=== PATIENT | female | born 1990 | race Caucasian/White ===

== ENCOUNTER 2017-07-10 09:50 | Outpatient (CLI) | payer OTHER, MEDICAID, BC, SELFPAY ==
[2017-07-10 10:54] VITALS: BMI 23.5
[2017-07-10 12:17] LABS: Amphetamine Urine VISTA NEGATIVE (<1000 ng/mL); Barbiturate Urine VISTA NEGATIVE (< 200 ng/mL); Benzodiazepine Urine VISTA NEGATIVE (< 200 ng/mL); Cocaine Urine VISTA NEGATIVE (< 300 ng/mL); Ecstacy Urine VISTA NEGATIVE (< 500 ng/mL); Methadone Urine VISTA NEGATIVE (< 300 ng/mL); PCP Urine VISTA NEGATIVE (< 25 ng/mL); THC Urine VISTA NEGATIVE (< 50 ng/mL); Vista UDS pH Range 7
--- NOTE | 2017-07-10 12:44 | OB.TRI.NOTE ---
History of Present Illness Reason For Visit: RULE OUT LABOR Date of Service: 07/10/17 Gestational age: 38 History of Present Illness: Presented for contractions. [place] last evening. Denied any vaginal bleeding, leakage of fluid. Many missed visits Allergies No Known Allergies Allergy (Verified 09/28/15 23:31) NST - FHR Rate Baby A Variability:: Moderate Accelerations:: 15 x 15 Decelerations:: None NST Reactive:: Yes FHR Category:: Category I Uterine Activity:: Irregular every 7- 10 minutes, mild. Patient not uncomfortable or feeling much contractions. Impression/Plan A: False labor at 36w1d P: 1) D/C home for false labor 2) [facility] 3) Talked with child welfare social worker for transportation.
--- NOTE | 2017-07-10 12:48 | OB.TRI.HP_ITS ---
History of Present Illness Reason For Visit: RULE OUT LABOR Date of Service: 07/10/17 Gestational age: 38 History of Present Illness: Presented for contractions. [place] last evening. Denied any vaginal bleeding, leakage of fluid. Many missed visits Allergies No Known Allergies Allergy (Verified 09/28/15 23:31) NST - FHR Rate Baby A Variability:: Moderate Accelerations:: 15 x 15 Decelerations:: None NST Reactive:: Yes FHR Category:: Category I Uterine Activity:: Irregular every 7- 10 minutes, mild. Patient not uncomfortable or feeling much contractions. Impression/Plan A: False labor at 36w1d P: 1) D/C home for false labor 2) [facility] appointment [facility] 3) Talked with social services analyst for transportation.
--- NOTE | 2017-07-10 13:45 | CASEMGMT ---
Social Work Note - Labor and Delivery Consult received by nursing Consult for: resources, specifically transportation issues, missed PNC appointments resulting in limited PNC and MOB at 36 weeks gestation. Summary: Met with patient in room alone. Introduced to social work role and reason for visit. Patient smiling and seeming relaxed in bed. Patient acknowledges there have been some transportation issues to get to appointments, as well as confirms that does have [facility]. 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 Patient denies any safety concerns in her home. Patient reports this was a surprise, that there was a lot of emotion with this, but is accepting of the and to be looking forward to baby. Patient reports to be set on baby supplies for the most part, to have a safe sleep space for baby but still needs a car seat. Patient reports has let WIC lapse, but has used this service in the past. Patient reports receptivity to resources which may be helpful, as well as agreed to have clinical social work aide print off WIC applications. Interventions: Provided handout regarding transportation and babies first program through [facility] Provided General resource list for [facility], as well as verbal education on Car Seat program through [facility] Provided WIC applications for self, baby, and younger children at home. MOB denies any other needs at this time, and reports thanks for information. Updated nursing staff. No other services requested or indicated at this time, but social work does remain available should other needs or concerns arise before discharge home. -JALEN Azul, TILE PROFESSIONAL
[2017-07-10 15:06] LABS: Group B Strep DNA By PCR Negative (Negative); Internal Control PASS; Probe Check PASS; Specimen Processing Control PASS
== END 2017-07-10 13:05 | disposition home or self-care (01) ==
LOC: WPOUT 10:30 → WP 10:30
PROVIDERS: Advanced Practice Midwife; Family Provider Family Medicine; PCP Family Medicine; Visit Provider Obstetrics & Gynecology
DX: O47.03 False labor before 37 completed weeks of gestation, third trimester (principal); Z3A.36 36 weeks gestation of pregnancy
CPT/HCPCS: 59025; 59050; 80307; 87081; 87653; 99218; G0378

== ENCOUNTER 2017-07-25 16:20 | Inpatient (IN) | payer OTHER, BC, MEDICAID, SELFPAY ==
[2017-07-25] MEDS: Lactated Ringers 1,000 ML 50 ML IV (17:00)
[2017-07-25 17:01] VITALS: BMI 23.6
[2017-07-25 17:24] LABS: Hematocrit 30.9 % (37-47); Hemoglobin 10.5 g/dl (12.0-15.0); Mean Corpuscular Hgb 31.8 pg (27.0-32.0); Mean Corpuscular Volume 93.6 fL (81-99); Mean Platelet Vol. 10.7 fl (6.2-12.0); Platelet Count 383 K/mm3 (150-450); RBC Distribution Width CV 13.3 % (11.6-14.6); RBC Distribution Width SD 43.9 fl (35.1-43.9)
[2017-07-25 17:26] LABS: Scan Indicated on CBC? Y/N NO
--- NOTE | 2017-07-25 17:36 | PCM.HP.OB ---
- Problem List (1) Active labor Status: Acute (2) Insufficient care Status: Acute Qualifiers: Trimester: unspecified trimester Qualified Code(s): O09.30 - Supervision of with insufficient care, unspecified trimester History Date of Admission: 07/25/17 Final RIGO: 08/06/17 Final RIGO Source: LMP Gestational age: 38 Weeks and 2 Days History of this : Patient has had scant care, large gap in care between 27 and 37 weeks gestation. Otherwise course has been uncomplicated. Pertinent Past Medical History: See [facility] Record Allergies No Known Allergies Allergy (Verified 09/28/15 23:31) Smoking Status: Current every day smoker - 5 cigs/day Alcohol: None Drug Use: none Number of Fetus(es): 1 Review of Systems Constitutional: Denies: Chills, Fever, Weight Change HEENT: Denies: Head Aches, Sinus Congestion, Sinus Drainage Cardiovascular: Denies: Chest Pain, Palpitations Respiratory: Denies: Cough, Shortness of breath at rest, Sputum production Gastrointestinal: Denies: Abdominal Pain, Nausea, Vomiting Genitourinary: Denies: Dysuria Musculoskeletal: Denies: Joint Pain, Joint Tenderness Skin: Denies: Rash, Wounds Neurological: Denies: Numbness, Tingling, Focal weakness Psychiatric: Denies: Anxiety, Depression, Homicidal Ideations, Suicidal Ideations Hematologic/ Lymphatic: Denies: Easy Bruising, Easy Bleeding Physical Exam Vitals: VSS, Afebrile Category I FHT, + Accels, moderate variability, no decels noted Ctx q 2-4 minutes, palpate strong General: Alert, Oriented x3, No apparent distress Lungs: Normal air movement Abdomen: Bowel Sounds Present, Gravid, Appropriate for Gestational Age Extremities:: No edema Estimated gestational size: Appropriate for gestational size Presentation: Cephalic Cervix Dilation (cm): 7 - Per nursing staff on admission Station: -2 Effacement (%): 90 Assessment/Plan Active and Suspected Problems Active labor (Acute) Insufficient care (Acute) A: 37 y/o @ 38.2 wks, Transition Stage of Labor, Category I FHT P: 1) Admit patient for labor - standard orders 2) Expectant labor management 3) Anticipate Rosetta Iverson CNM
[2017-07-25] MEDS: Oxytocin 30 units/NS 500 ml 30 UNITS/500 ML IV.SOLN 334 UNITS IV (18:00)
--- NOTE | 2017-07-25 18:25 | PCM.PN.BLA ---
Progress Note was called for manual removal of placenta- When I arrived I explored uterus, placenta was attached at right cornuate and fundal region. Was able to manually remove in pieces. Pt tolerated exam and procedure well. ultrasound confirmed No retained POC. Endometrial stipe easily seen and thin. will give IV ABX x 1 dose. Bleeding controlled with only pitocin.
[2017-07-25] MEDS: Oxytocin 30 units/NS 500 ml 30 UNITS/500 ML IV.SOLN 167 UNITS IV (18:30)
--- NOTE | 2017-07-25 18:55 | PCM.OB.VAG ---
- Problem List (1) Active labor Status: Resolved (2) Insufficient care Status: Resolved Qualifiers: Trimester: unspecified trimester Qualified Code(s): O09.30 - Supervision of with insufficient care, unspecified trimester (3) Retained placenta after delivery without hemorrhage but with other complication Status: Resolved Vaginal Delivery Maternal Presentation: Active Labor Patient presented in active labor at hospital, reports regular ctx started at 2:45pm and then BOW broke around 3 or 3:30pm. On admission patient was 7cm. Patient progressed well to over intact perineum at 1755 of viable baby girl. Infant with spontaneous cry and respirations and placed immediately on patient's chest skin to skin after delivery. Mouth and nose bulb suctioned, baby was dried and stimulated. Umbilical cord clamped and cut once it stopped pulsing. IV pitocin for active management of 3rd stage started per protocol. Large gush of vaginal bleeding noted and attempt made by patient to bear down to delivery placenta. Membranes presented to vaginal opening but cord resistance noted. Several attempts made over next 20 minutes to deliver as continuous trickle of bleeding noted. Placenta would not easily deliver, initial attempt at manual expression by this enamel pulverizer unsuccessful. Back-up OB Dr. Hughes called to bedside for evaluation and assistance in case conversion to D+C for placental delivery needed. Placenta delivered manually per Dr. Hughes as outlined in her note. Ultrasound done after confirmed no evidence of retained products. Total EBL = 600cc. FF midline 3FB below umbilicus. Upon inspection of vaginal vault, Rt. periurethral abrasion noted that was hemostatic. No repair done. Sponge count correct. Vaginal sweep negative. Baby to breast, bonding and oija-rl-akby initiated. Rosetta Iverson CNM Amniotic Membrane Rupture Type: Spontaneous at home - Around 3:30pm Amniotic Fluid Description: Clear Final RIGO: 08/06/17 Gestational age: 38 Weeks and 2 Days Date of Procedure: 07/25/17 Pre-Operative Diagnosis: Active Labor @ 38.2 weeks Presentation: Vertex, PRESTON Placental Delivery Description: Manual Removal - Dr. Hughes called in to assist with removal - see her note re: placenta delivery Placenta Disposition: [facility] Cord Vessel Description: 3 Vessels Cord Entanglement: None Estimated Blood Loss: 600cc A gender: Female (1 minute): 9 (5 minute): 9 Episiotomy Description: None Laceration: None - Rt. periurethral abrasion Medications given after delivery: IV Pitocin Complications: None
--- NOTE | 2017-07-25 19:09 | OP.PCM_ITS ---
- Problem List (1) Active labor Status: Resolved (2) Insufficient care Status: Resolved Qualifiers: Trimester: unspecified trimester Qualified Code(s): O09.30 - Supervision of with insufficient care, unspecified trimester (3) Retained placenta after delivery without hemorrhage but with other complication Status: Resolved Vaginal Delivery Maternal Presentation: Active Labor Patient presented in active labor at hospital, reports regular ctx started at 2: 45pm and then BOW broke around 3 or 3:30pm. On admission patient was 7cm. Patient progressed well to over intact perineum at 1755 of viable baby girl. Infant with spontaneous cry and respirations and placed immediately on patient's chest skin to skin after delivery. Mouth and nose bulb suctioned, baby was dried and stimulated. Umbilical cord clamped and cut once it stopped pulsing. IV pitocin for active management of 3rd stage started per protocol. Large gush of vaginal bleeding noted and attempt made by patient to bear down to delivery placenta. Membranes presented to vaginal opening but cord resistance noted. Several attempts made over next 20 minutes to deliver as continuous trickle of bleeding noted. Placenta would not easily deliver, initial attempt at manual expression by this subscription agent unsuccessful. Back-up OB Dr. Hughes called to bedside for evaluation and assistance in case conversion to D+C for placental delivery needed. Placenta delivered manually per Dr. Hughes as outlined in her note. Ultrasound done after confirmed no evidence of retained products. Total EBL = 600cc. FF midline 3FB below umbilicus. Upon inspection of vaginal vault, Rt. periurethral abrasion noted that was hemostatic. No repair done. Sponge count correct. Vaginal sweep negative. Baby to breast, bonding and onno-ip-jprm initiated. Rosetta Iverson CNM Amniotic Membrane Rupture Type: Spontaneous at home - Around 3:30pm Amniotic Fluid Description: Clear Final RIGO: 08/06/17 Gestational age: 38 Weeks and 2 Days Date of Procedure: 07/25/17 Pre-Operative Diagnosis: Active Labor @ 38.2 weeks Presentation: Vertex, PRESTON Placental Delivery Description: Manual Removal - Dr. Hughes called in to assist with removal - see her note re: placenta delivery Placenta Disposition: [facility] Cord Vessel Description: 3 Vessels Cord Entanglement: None Estimated Blood Loss: 600cc A gender: Female (1 minute): 9 (5 minute): 9 Episiotomy Description: None Laceration: None - Rt. periurethral abrasion Medications given after delivery: IV Pitocin Complications: None
[2017-07-25] MEDS: Ibuprofen 600 MG Tablet PO (19:10)
[2017-07-25] MEDS: Lactated Ringers 1,000 ML 125 ML IV (19:30)
[2017-07-25] MEDS: Cefazolin 2 GM in 0.9% Normal Saline 100 ML IV (20:03)
[2017-07-25] MEDS: Acetaminophen 500 MG Tablet 1000 MG PO (20:16)
[2017-07-25] MEDS: oxyCODONE 5 MG Tablet PO (22:44)
[2017-07-25 22:45] VITALS: BP 119/66; PULSE 76; RESP 16; TEMP 37.2; O2SAT 98
[2017-07-25 23:40] VITALS: BP 108/67; PULSE 73; RESP 17; TEMP 37.2; O2SAT 98
[2017-07-26] MEDS: Ketorolac 30 MG/ML Syringe IV (01:39)
[2017-07-26] MEDS: 0.9% Saline Lock 10 ML Syringe IV ×2 (01:40→04:20)
[2017-07-26 04:20] VITALS: BP 101/56; PULSE 61; RESP 17; TEMP 37.1; O2SAT 100
[2017-07-26 06:40] LABS: Hematocrit 25.8 % (37-47); Hemoglobin 8.4 g/dl (12.0-15.0); Mean Corp Hgb Conc 32.6 g/gl (32-36); Mean Corpuscular Volume 95.2 fL (81-99); Mean Platelet Vol. 10.8 fl (6.2-12.0); Platelet Count 337 K/mm3 (150-450); RBC Distribution Width SD 42.9 fl (35.1-43.9); Red Blood Count 2.71 M/mm3 (4.2-5.4); White Blood Count 15.9 K/mm3 (4.4-11.0)
[2017-07-26 06:42] LABS: Scan Indicated on CBC? Y/N NO
--- NOTE | 2017-07-26 08:33 | DCINST_ITS ---
Discharge Diet: No Restrictions Discharge Activity: Return to Normal Activity, May not drive while taking narcotic pain medications., May Shower May resume sexual activity in: 4-6 weeks Additional Activity Instructions:: Nothing in the vagina for 4-6 weeks. You may return to work/school in 6 weeks. Call your doctor if your incision/area has: Continuous Slow Oozing, Sudden Increased Bleeding, Increased Pain/ Swelling, Increased Redness, Foul Smelling Discharge Call your doctor if you observe: Fever of 101 or Higher, Inability to urinate, Inability to have a bowel movement, Using more than one pad per hour, Uncontrolled pain Additional Instructions: If you experience any of the following, contact your healthcare provider. * Bleeding that soaks a pad every hour for 2 hours * Fever 100.4 or higher * Unrelieved incision or abdominal pain * Swelling, redness, discharge or bleeding from your incision or episiotomy site * Your incision begins to separate * Problems urinating (including inability to urinate or burning while urinating) . * Visual changes * Severe headache * Flu-like symptoms * Pain or redness in one of both of your breasts * Pain, warmth, tenderness or swelling in your legs, especially the calf area * Frequent nausea and vomiting * Symptoms of depression or anxiety If you experience any of the following, call 911 or go to the nearest Emergency Room. * Chest pain * Problems breathing * Seizure activity * Partial or complete paralysis of a body part, slurred speech, weakness or drooping of the face, or a sudden inability to walk or hold your balance Allergies/Adverse Reactions: Allergies No Known Allergies Allergy (Verified 09/28/15 23:31) Medications to take at Discharge Acetaminophen [Tylenol] 1,000 mg PO Q8H PRN PRN tablet 07/26/17 Iron Carbonyl [Feosol] 45 mg PO DAILYCM #30 cap 07/26/17 Senna/Docusate Sodium [Senokot-S] 1 - 2 tablet PO DAILY PRN PRN tablet The following prescriptions were given: Iron Carbonyl [Feosol] 45 mg PO DAILYCM #30 cap Orders to be completed after discharge: Electric breast pump Location: None Selected When: Call to make an appointment with your doctor in 6 weeks. If you had elevated Blood Pressure or 4th degree laceration you will need to be seen in 2 weeks. Primary Care Physician: Tawny Esquivel MD [Primary Care Provider] -
--- NOTE | 2017-07-26 08:33 | PCM.PN.BLA ---
Progress Note S: Patient sitting up in bed reporting that her uterine cramping pain improved after the dose of Toradol. Patient reports that pain is most intense during and when baby is latched. Patient denies any issues with any ambulation or urination. Patient denies dizziness or light-headedness with walking. Patient desires discharge to home close to 24 hours PP if baby is stable. O: VSS, Afebrile; Hgb = 8.4 today Nipples without any cracks or blisters, no erythema or ecchymoses noted Abdomen NT x 4 quadrants, FF midline 3FB below umbilicus +2/4 reflexes in LE, negative calf tenderness to palpation, no edema Intact perineum, scant rubra lochia A: 27 y/o G4 now P4, PPD #1 s/p with complication of manual removal of placenta, Asymptomatic Anemia P: 1) Rpt CBC @ 1800, will continue Fe Supplement at this time 2) Anticipate discharge home this evening pending discharge of 3) Anticipatory PP teaching reviewed with patient 4) Patient desires PP Tubal, [facility] office will call patient to schedule 4 to 5 weeks PP 5) RTC @ 6-8 weeks for f/u PP visit. Rosetta Iverson CNM
[2017-07-26] MEDS: Ibuprofen 600 MG Tablet PO (10:14)
[2017-07-26 10:17] VITALS: BP 100/68; PULSE 68; RESP 14; TEMP 37; O2SAT 99
[2017-07-26 14:10] VITALS: BP 101/62; PULSE 72; RESP 16; TEMP 37.1; O2SAT 99
[2017-07-26 17:04] VITALS: BP 113/65; PULSE 96; RESP 16; TEMP 36.9
[2017-07-26 17:49] LABS: Hematocrit 24.5 % (37-47); Hemoglobin 8.2 g/dl (12.0-15.0); Mean Corp Hgb Conc 33.5 g/gl (32-36); Mean Corpuscular Hgb 31.3 pg (27.0-32.0); Mean Corpuscular Volume 93.5 fL (81-99); Platelet Count 323 K/mm3 (150-450); RBC Distribution Width CV 13.4 % (11.6-14.6); RBC Distribution Width SD 46.2 fl (35.1-43.9); Red Blood Count 2.62 M/mm3 (4.2-5.4)
[2017-07-26 17:52] LABS: Scan Indicated on CBC? Y/N NO
[2017-07-26 19:45] VITALS: BP 104/73; PULSE 84; RESP 16; TEMP 37.1; O2SAT 99
--- NOTE | 2017-07-26 21:28 | NURSING ---
infant bands checked and verified with mother @ 2039.
== END 2017-07-26 20:45 | disposition home or self-care (01) | DRG 767 ==
PROVIDERS: Advanced Practice Midwife; Admitting Provider Obstetrics & Gynecology; Family Provider Family Medicine; PCP Family Medicine; Visit Provider Obstetrics & Gynecology
DX: O42.02 Full-term premature rupture of membranes, onset of labor within 24 hours of rupture (principal); D62 Acute posthemorrhagic anemia; O73.0 Retained placenta without hemorrhage; O90.81 Anemia of the puerperium; O71.89 Other specified obstetric trauma; O99.334 Smoking (tobacco) complicating childbirth; Z37.0 Single live birth; Z3A.38 38 weeks gestation of pregnancy
CPT/HCPCS: 85027; 86850; 86900; 99218; J7120; A4216; G0378

== ENCOUNTER 2017-08-20 11:53 | Day surgery (SDC) | payer OTHER, BC, MEDICAID, SELFPAY ==
--- NOTE | 2017-08-20 | FALS_PTH ---
PATIENT: YUIL ROQUE LOC: [facility] [place] U#:[id number] AGE/SX: 27/F ROOM: RE08/20/[address]: Dr. Carmela De La Cruz MD : 1990 BED: DIS: 08/20/2017 SPEC #: [id number] RECD: 08/20/17 15:02 STATUS: LEW JOSE DANIEL #: [id number] SKYLAR: 08/20/17 00:[address]: Carmela De La Cruz DEPT: SURGICAL PATHOLOGY RECD BY: William Andres ENTERED: 08/20/17 15:02 SP TYPE: FALL TUBES OTHR DR: Dr. Tawny Esquivel MD Tissues: Fallopian tube Procedures: Surgery Specimen Level II HEADER OPERATION: Laparoscopic salpingectomy PRE-OP DIAGNOSIS: Desire for sterilization TISSUE SUBMITTED: Bilateral fallopian tubes MICROSCOPIC DIAGNOSIS Bilateral fallopian tubes, salpingectomy: Bilateral fallopian tubes including fimbrial ends, no pathologic diagnosis. SJ:remi 08/21/17 MICROSCOPIC DESCRIPTION Slides are reviewed. GROSS DESCRIPTION Received in fixative is one container labeled with the patient's name and designated bilateral fallopian tubes. The specimen consists of bilateral fallopian tubes including fimbrial ends. The fallopian tubes are not identified as right or left. One fallopian tube measures 6 cm in length and 0.5 cm in diameter and the second fallopian tube measures 6 cm in length and 0.5 cm in diameter. Sections reveal unremarkable cut surfaces. [place] [employer] sections are submitted in two cassettes with each cassette containing one fallopian tube. / KAN:remi 08/20/17 TC:4 CPT: 38348 x2
[2017-08-20 12:24] LABS: Internal QC Validated? YES +Cl - CLEAR BKGD; Pregnancy, Urine Negative Negative
[2017-08-20 12:26] VITALS: BP 110/69; PULSE 85; RESP 14; TEMP 36.9; O2SAT 100; BMI 21.2
[2017-08-20] MEDS: Acetaminophen 500 MG Tablet 1000 MG PO (12:32)
[2017-08-20] MEDS: Ketorolac 60 MG/2 ML Vial IM (12:32)
[2017-08-20 12:54] LABS: Hematocrit 34.4 % (37-47); Hemoglobin 10.8 g/dl (12.0-15.0); Mean Corp Hgb Conc 31.4 g/gl (32-36); Mean Corpuscular Hgb 28.6 pg (27.0-32.0); Mean Platelet Vol. 9.1 fl (6.2-12.0); Platelet Count 608 K/mm3 (150-450); RBC Distribution Width CV 14.3 % (11.6-14.6); RBC Distribution Width SD 47.2 fl (35.1-43.9); Red Blood Count 3.78 M/mm3 (4.2-5.4); White Blood Count 8.7 K/mm3 (4.4-11.0)
[2017-08-20 12:59] LABS: Scan Indicated on CBC? Y/N NO
[2017-08-20] MEDS: Bupivacaine Mpf 0.5% 30 ML VIAL (13:28)
--- NOTE | 2017-08-20 13:28 | PCM.HP.OB ---
History Date of Admission: 08/20/17 Final RIGO: 08/18/17 Final RIGO Source: LMP Gestational age: 40 Weeks and 2 Days History of this : 27-year-old 2 para 1 female at 40-2/7 weeks gestation with EDC of 08/18/2017 by last menstrual period confirmed by second trimester ultrasound presents complaining of contractions. She states they got worse 4 AM she had some irregular contractions last night. She denied any gross vaginal bleeding or leaking of fluid. When she arrived to labor and delivery she was examined by the nursing staff and found to be 8 cm. She was admitted for labor. She did not desire an epidural at this time. Pertinent Past Medical History: She denies any major medical problems, surgical history significant for repair of Achilles tendon. Obstetrical history significant for 1 previous full-term vaginal delivery of a 7 lbs. 14 oz. infant without complications. Current has been uncomplicated to date. Medical history is noncontributory. Allergies No Known Allergies Allergy (Verified 08/18/17 13:41) Smoking Status: Never smoker Alcohol: None Drug Use: none Number of Fetus(es): 1 Review of Systems Constitutional: Denies: Chills, Fever Cardiovascular: Denies: Chest Pain, Edema Respiratory: Denies: Cough Physical Exam Vitals: Vital Signs Temp Pulse Resp BP Pulse Ox 98.4 F 85 14 110/69 100 08/20/17 12:26 08/20/17 12:26 08/20/17 12:26 08/20/17 12:26 08/20/17 12:26 General: Alert, Cooperative, No apparent distress Cardiovascular: Regular rate Lungs: Normal air movement Abdomen: Soft, Non-Distended, Tender - appropriately Extremities:: No edema Estimated gestational size: Appropriate for gestational size Presentation: Cephalic Assessment/Plan 27 YOF @ 40 2/7 weeks in labor expectant management EFW < 4500 gm, pelvis clinically adequate NO or epidural if requests for pain management
--- NOTE | 2017-08-20 13:58 | PCM.DC.TUB ---
Discharge Diet: No Restrictions - Increase fluid intake for the next 48 hours. Discharge Activity: Return to Normal Activity, May Drive - when you are no longer taking pain/narcotic meds., May Shower, May Take a Tub Bath - in 7 days May resume sexual activity in: No Restrictions Additional Activity Instructions:: Ambulate often the next week after surgery. Nothing in the vagina for 5 days. Call your doctor if your incision/area has: Continuous Slow Oozing, Sudden Increased Bleeding, Increased Pain/ Swelling, Increased Redness, Foul Smelling Discharge Call your doctor if you observe: Fever of 101 or Higher Cleanse incision/area with: Soap & Water, - - your incision has skin glue, it can get wet Allergies/Adverse Reactions: Allergies No Known Allergies Allergy (Verified 08/18/17 13:41) Medications to take at Discharge Acetaminophen [Tylenol] 1,000 mg PO Q8H PRN PRN tablet 07/26/17 Iron Carbonyl [Feosol] 45 mg PO DAILY 08/18/17 Primary Care Physician: Tawny Esquivel MD [Primary Care Provider] - Please Follow Up With: Carmela De La Cruz MD - [phone] When: 2-3 weeks if needed or sooner if needed
--- NOTE | 2017-08-20 14:23 | PCM.OPRPT ---
Report of Operation Date of Procedure: 08/20/17 Pre-Operative Diagnosis: Sterilization request Post-Operative Diagnosis: same Surgery/Procedure Performed:: Laparoscopic bilateral salpingectomy Description of Surgical Findings:: normal uterus, tubes and ovaries wire winding machine operator: Sayra Diane m3 Type of Anesthesia:: General Anesthesiologist: Aroldo Scanlon Special Medications: none Specimen's removed: bilateral tubes Drains: none Estimated Blood Loss (mL): 10cc Fluids Replaced: 1200 cc LR Description of Procedure: The patient was taken to the operating room where she was prepped and draped in the dorsolithotomy position. A weighted speculum was placed in the vagina and the anterior lip of the cervix was grasped with a tenaculum. The [employer] cannula uterine manipulator was placed and the remainder of the instruments were removed from the vagina. Attention was turned to the abdomen. All port sites were infiltrated with 0.5% Marcaine before skin incisions were made. A 5 mm intraumbilical incision was made. The anterior abdominal wall was tented up with 2 towel clamps while a 5 mm blade less trocar and sleeve were directly inserted. Intraperitoneal placement was confirmed with the laparoscope. The pneumoperitoneum was created and the underlying abdominal contents were intact. The patient was placed in Trendelenburg. Right and left lower quadrant ports were placed under direct visualization lateral to the inferior epigastric vessels. The bowel was swept away and the above findings were noted. The LigaSure device was used to clamp seal and transect the antimesenteric portions of the right tube to the cornual insertion of the uterus. The tube was amputated from the uterus and the pedicles were all confirmed to be hemostatic. The same procedure was performed on the contralateral side. The specimens were brought out through a 5 mm port. The pedicles were again examined and found to be hemostatic. The lateral ports were removed under direct visualization and no active bleeding was noted. The pneumoperitoneum was released. The skin incisions were closed with Monocryl suture in a subcuticular fashion and skin glue. The vaginal instruments were removed and the vaginal sweep was completed by me. The procedure was performed by me with assistance. All sponge and needle counts were correct and the patient was taken to the recovery room in stable condition. Grafts/Implants Used: none - Complications none - Admit VTE Documentation VTE Present on Admission: No VTE Mechan Device Prophylaxis: SCD's Reason prophylaxis not ordered:: Procedure Not Indicated
[2017-08-20 14:36] VITALS: BP 110/69; BP 138/97; PULSE 75; RESP 14; TEMP 36.6; O2SAT 96
[2017-08-20 14:45] VITALS: BP 110/69; BP 126/82; PULSE 68; RESP 16; O2SAT 98
[2017-08-20 15:00] VITALS: BP 110/69; BP 117/75; PULSE 70; RESP 16; O2SAT 99
[2017-08-20 15:12] VITALS: BP 110/69; BP 111/73; PULSE 60; RESP 16; TEMP 36.5; O2SAT 99
[2017-08-20 15:37] VITALS: BP 110/69
== END 2017-08-20 15:43 | disposition home or self-care (01) ==
LOC: SDC 11:59 → AC 12:02
PROVIDERS: Family Provider Family Medicine; PCP Family Medicine; Visit Provider Obstetrics & Gynecology
PROC: (CPT 58661; principal; 2017-08-20 13:10)
DX: Z30.2 Encounter for sterilization (principal); D64.9 Anemia, unspecified; E78.5 Hyperlipidemia, unspecified; F17.210 Nicotine dependence, cigarettes, uncomplicated
CPT/HCPCS: 58661; 81025; 85027; 88302; J3010; J2405

== ENCOUNTER 2019-08-15 21:04 | Emergency (ER) | payer BC, MEDICAID, SELFPAY ==
[2019-08-15 21:06] VITALS: BP 118/76; PULSE 99; RESP 18; TEMP 36.8; O2SAT 100; BMI 19.7
--- NOTE | 2019-08-15 21:34 | ED.VIS.GEN ---
History of Present Illness Chief Complaint: Allergic Reaction Informant: Patient Onset: Today Current Severity: Mild Maximum Severity: Mild Narrative: Patient presents due to concern for allergic reaction. She has been having some dental pain on the right side for quite some time. She was seen by the dentist earlier today. She states they did x-rays and looked around a little bit, but really did not do much cleaning or scraping. This evening she asked her to get a dose of her antibiotics for her. He accidentally grabbed the Keflex that he was prescribed and gave that to her instead of the amoxicillin she was prescribed. Approximately 3 hours after taking a dose of Keflex patient reports swelling to the right lower lip and gums on the right side. She denies ever having Keflex in the past. She did not take anything for her symptoms prior to arrival. She denies throat tightness or shortness of breath. She had no difficulty swallowing. Past Medical History - Allergies and Home Meds Allergies/Adverse Reactions: Allergies No Known Allergies Allergy (Verified 08/15/19 21:09) Primary Care Physician: Tawny Esquivel MD [Primary Care Provider] - Prior records reviewed: Yes Lives: With Family Smoking Status: Never smoker Review of Systems General: Denies: Chills, Fever Eyes: Denies: Visual changes - bilaterally ENT: Reports: - - Lip swelling, dental pain. Denies: Bilateral ear pain Cardiovascular: Denies: Chest pain Respiratory: Denies: Dyspnea, Cough Gastrointestinal: Denies: Abdominal pain Genitourinary: Denies: Dysuria Musculoskeletal: Denies: Swelling, Extremity Pain Neurological: Denies: Headache Allergy: Denies: Uticaria Physical Exam Vital Signs/Narrative: Vital Signs Temp Pulse Resp BP Pulse Ox 08/15/19 21:06 98.3 F 99 18 118/76 100 Inital Vital Signs reviewed: Yes General: Well nourished, Well developed Head: Normocephalic ENT: Moist mucous membranes, - - Intraoral examination reveals right mandibular molar broken at gumline. There is mild surrounding gum edema. There is no trismus. Submandibular space is soft. She has very minimal right lower lip edema. Neck: Supple Cardiovascular: Regular rate, Regular rhythm Respiratory: No distress, CTA bilaterally Abdomen: Soft, Nontender Extremities: Nontender Skin: Normal color, No rash Diagnostic/Tx/Re-eval - Medical Decision Making Patient did drive herself to the emergency room and has no ride home. She was given Pepcid and prednisone. She was observed for an hour after medications were given and has no worsening of her symptoms. Symptoms have been largely unchanged for the past 4 and half hours. She will take Benadryl when she gets home tonight. I am unsure this is a true allergic reaction or just swelling from her right-sided dental infection. She will take her amoxicillin and follow-up with her dentist as scheduled. She was given return instructions. ED Disposition - Plan for ED Patient: Disposition: Home or Assisted Living Diagnosis: Lip swelling Instructions: ALLERGIC REACTION, Drug Referrals: Tawny Esquivel MD [Primary Care Provider] - Additional Instructions: Follow-up with your dentist as scheduled. Return for worsened symptoms or new concerns.
[2019-08-15] MEDS: Famotidine 20 MG Tablet 40 MG PO (21:45)
[2019-08-15] MEDS: predniSONE 20 MG Tablet 40 MG PO (21:46)
[2019-08-15 22:51] VITALS: BP 104/71; PULSE 82; RESP 16; O2SAT 99
== END 2019-08-15 22:53 | disposition home or self-care (01) ==
PROVIDERS: Emergency Provider Emergency Medicine; PCP Family Medicine
DX: R22.0 Localized swelling, mass and lump, head (principal)
CPT/HCPCS: 99283

== ENCOUNTER 2021-03-13 11:11 | Emergency (ER) | payer OTHER, BC, MEDICAID, SELFPAY ==
[2021-03-13 11:11] VITALS: BP 112/85; PULSE 94; RESP 18; TEMP 36.4; O2SAT 100; BMI 20.5
--- NOTE | 2021-03-13 11:28 | ED.RN ---
Colleen from [facility] was called to verify if a [facility] drug screen was needed. she wasn't sure is to follow up with their hr and call us back.
--- NOTE | 2021-03-13 11:30 | ED.RN ---
supervisor prepress zen [phone].
--- NOTE | 2021-03-13 11:38 | RAD_ITS ---
STUDY: X-RAY - RIGHT RADIUS AND ULNA REASON FOR EXAM: Female, 30 years old. Dog bite deformity TECHNIQUE: 2 view(s) of the forearm. COMPARISON: None. FINDINGS: Soft tissue emphysema overlying the distal aspect of the ulna. Transverse fracture of the distal radial metaphysis with ulnar and volar subluxation of the distal fracture fragment. Transverse fracture of the distal ulnar metaphysis with ulnar and volar displacement of the distal fracture fragments. RAD/Forearm 2 Views IMPRESSION: Transverse fracture of the distal radial and ulnar metaphysis with ulnar and volar displacement of the distal fracture fragments. Overlying soft tissue swelling and subcutaneous air within the soft tissues. Electronically Signed: Ramiro Carter MD at 12:51 EDT , Service support ,
--- NOTE | 2021-03-13 11:38 | RAD_ITS ---
STUDY: X-RAY - RIGHT WRIST REASON FOR EXAM: Female, 30 years old. Dog bite deformity TECHNIQUE: 3 view(s) of the wrist were obtained. COMPARISON: None. FINDINGS: Transverse fracture of the distal radial and ulnar metaphysis with ulnar and volar displacement of the distal fracture fragments. Normal radiocarpal articulation. Normal distal radioulnar articulation. Normal carpal bones. Normal carpal articulations. Normal carpometacarpal articulation of the thumb. Normal second through fifth carpometacarpal articulations. Normal visualized metacarpal bones. Soft tissue swelling with subcutaneous emphysema. RAD/Wrist min 3 Views IMPRESSION: Transverse fractures of the distal radial and ulnar metaphysis with ulnar and ventral displacement of the fracture fragments. Soft tissue swelling and subcutaneous emphysema. Electronically Signed: Ramiro Carter MD at 12:52 EDT , Service support ,
--- NOTE | 2021-03-13 11:52 | ED.RN ---
PER PEDIATRIC NEPHROLOGIST JESSE SALAS IS NOT REQUIRED TO HAVE A DRUG SCREEN.
[2021-03-13] MEDS: Morphine 4 MG/ML Syringe IV (11:53)
[2021-03-13] MEDS: Cefazolin 2 GM in 0.9% Normal Saline 100 ML IV (11:57)
[2021-03-13 11:59] LABS: Absolute Lymphocyte Count 3.21 X10^3/uL (0.83-4.51); Absolute Neutrophil Count 10.3 X10^3/uL (2.0-7.7); Basophil# 0.06 X10^3/uL; Basophil% 0.4 % (0-1); Eosinophils% 1.4 % (0-5); Hematocrit 35.7 % (37-47); Lymphocyte # 3.21 X10^3/ul (0.83-4.51); Lymphocyte % 21.8 % (19-41); Mean Corp Hgb Conc 33.6 g/dL (32-36); Mean Corpuscular Hgb 31.5 pg (27.0-32.0); Mean Corpuscular Volume 93.7 fL (81-99); Monocyte# 0.87 X10^3/uL; Monocyte% 5.9 % (0-10); NRBC Flagged by Analyzer 0 % (0-5); Neutrophil # 10.32 X10^3/uL (2.7-7.7); Neutrophil % 70.2 % (47-70); Platelet Count 325 K/mm3 (150-450); RBC Distribution Width SD 44.7 fl (35.1-43.9); Red Blood Count 3.81 M/mm3 (4.2-5.4); White Blood Count 14.7 K/mm3 (4.4-11.0)
--- NOTE | 2021-03-13 12:04 | EX.ED.UPPERE ---
HPI History of Present Illness Chief Complaint: Bite Narrative Narrative: [id number] female presents from work secondary to dog bite injury right upper extremity. Works at the [employer]. 90 pound dog, states was taken out for a walk when she was suddenly attacked. They have had the dog for 2 months. No previous incident in the past. No anticoagulation medications. No past medical history. No allergies. Incident occurred less than an hour ago. Pain and swelling to the site bleeding controlled with pressure. Tetanus Immunization: <5 years Prior similar symptoms: No PFSH PFSH Medical History no medical history Home Medications NK 03/13/21 [History Last Taken Unknown] Allergy/AdvReac Type Severity Reaction Status Date / Time No Known Allergies Allergy Verified 03/13/21 11:13 Social History Smoking Status: Current every day smoker tobacco type: cigarettes ROS ROS ED Constitutional Constitutional ED: Denies chills, fever(s) or sweats Eyes Eyes: Denies change in vision ENT ENT ED: Denies dysphagia or sore throat Cardiovascular Cardiovascular: Denies chest pain, leg edema, palpitations or racing heartbeat Respiratory/Chest Respiratory/Chest: Denies cough, dyspnea or dyspnea on exertion Gastrointestinal Gastrointestinal: Denies abdominal pain, diarrhea, nausea or vomiting Genitourinary Genitourinary ED: Denies dysuria, hematuria or urinary frequency Musculoskeletal Musculoskeletal: Reports other Details: Right wrist and hand pain. ; Denies back pain, extremity pain or neck pain Integumentary Reports other Details: Dog bite lacerations distal forearm wrist and hand. ; Denies rash or wounds Neurologic Neurologic: Denies headache(s), paresthesias or weakness EXAM Physical Exam Const Vital Signs: 03/13/21 11:11 Temperature 97.6 F L Temperature Source Temporal Pulse Rate 94 Respiratory Rate 18 Blood Pressure 112/85 H Blood Pressure Mean 94 Pulse Ox 100 Oxygen Delivery Method Room Air Positive well nourished and well developed General Appearance ED: well developed and NAD HEENT Reports moist mucous membranes normocephalic and atraumatic Eyes PERRL, EOMs intact bilaterally and conjunctivae normal General Eye ED: Yes normal appearance of both eyes Neck no lymphadenopathy and supple General: Negative for tenderness Chest Wall Chest: Negative for tenderness Resp normal respiratory effort and normal air movement Effort and Inspection: symmetric chest movement; Negative for respiratory distress Cardio regular rate, regular rhythm and no murmurs Peripheral Pulses: pulses 2+ throughout GI normal to inspection, nondistended, normoactive bowel sounds and non-tender Palpation: Negative for guarding or rebound tenderness present Back/Spine no CVA tenderness and no thoracic nor lumbar tenderness Extremity Extremity Narrative: Right upper extremity: Distal forearm wrist and hand noted multiple puncture lacerations. 2 lacerations distal dorsal forearm least 2 cm with subcutaneous exposure, 2 and half centimeter dorsal mid wrist, 2 cm dorsal proximal 1st metacarpal, 1 cm mid 2nd metacarpal all with subcutaneous exposure. There is 1 cm laceration dorsal 5th metacarpal. Radial aspect noted a 1 cm and 1 and half centimeter laceration with subcutaneous exposure. There was deformities of the wrist with palpation of the radial styloid. There is no protrusion through the skin. There is hematoma swelling at the distal forearm. General Extremety ED: Negative for edema or tenderness General Extremity: Negative for edema Neuro oriented x3 and no sensory deficits noted Sensorium / Orientation: awake and alert Skin no rashes or lesions noted and no wounds MDM MDM MDM Narrative Medical decision making narrative: Patient with extensive dog bite injury there is deformity at the wrist and distal forearm, IV was placed morphine, Ancef, labs were drawn. Betadine with saline soaked placed on the wounds. X-rays ordered of the forearm and the wrist for further evaluation. X-ray right forearm right wrist obtained noted displaced distal radius and ulnar fracture. Confirming open fracture. I discussed with covering orthopedist Dr. Slater along with his partner Dr. Boateng, recommended transfer to a trauma facility with a hand specialist due to high infection risk. I discussed this with the patient. I discussed with the trauma center at [facility], patient accepted to the ED under the service of Dr. Wilcox. Image studies will be sent with the patient. Patient was placed in a wet-to-dry dressing AP plaster splint was slightly reduced to more alignment with improved symptoms in the ED prior to transport. Procedure note: Verbal consent. Fentanyl IV was given. Patient fracture alignment was straightened normal saline wet dressing placed over the wounds, dry dressing placed. With traction. Kerlix dressing around forearm and hand. AP plaster splint placed for immobilization. Dave wrap to secure. Patient tolerate procedure well. Pain more improved, neurovascular intact distally. 1720: Patient clinically stable, additional pain medications. Still awaiting transport at this time. Lab Data Attestation: I reviewed the patient's lab results. Labs: Laboratory Results - last 24 hr 03/13/21 11:48 WBC 14.7 H RBC 3.81 L Hgb 12.0 Hct 35.7 L MCV 93.7 MCH 31.5 MCHC 33.6 RDW Std Deviation 44.7 H RDW Coeff of Maegan 13.0 Plt Count 325 MPV 11.0 Immature Gran % (Auto) 0.300 Neut % (Auto) 70.2 H Lymph % (Auto) 21.8 Pratt % (Auto) 5.9 Eos % (Auto) 1.4 Baso % (Auto) 0.4 Absolute Neuts (auto) 10.3 H Absolute Lymphs (auto) 3.21 Nucleated RBC % 0 Radiography Diagnostic Testing: Right forearm 2 views, right wrist 3 views: Reviewed by myself and read by radiology as displaced distal radius and ulnar fracture. Critical Care Time Critical Care Time: Yes Critical care time (excluding procedures): 30-74 minutes, Discussing w/Consultants, Arranging Admission or Transfer, Performing Direct Patient Care at Bedside and - (40) Discharge Plan Triage Chief Complaint: Bite ED Provider: Pavan Perez Dx/Rx/DC Orders Clinical Impression: Dog bite of forearm, Open fracture of forearm Prescriptions: No Action NK RF: 0 Primary Care Provider: Tawny Esquivel Referrals: Tawny Esquivel MD [Primary Care Provider] - Disposition Disposition: Transfer to Another Type HCF
[2021-03-13 12:06] LABS: Anion Gap 9 (5-15); BUN 6 mg/dL (7-18); BUN/Creat Ratio 6.5 RATIO (10-20); Calcium,Total 8.6 mg/dL (8.5-10.1); Chloride 107 mmol/L (98-107); Creatinine, Serum 0.93 mg/dL (0.55-1.02); EST Glomerular Filtration Rate 76 mL/min (>60); Est Glom Filt Rate - Afr Amer 92 mL/min (>60); Estimated Creatinine Clearance 77.39 ml/min; Glucose 166 mg/dL (74-106); Potassium 3.4 mmol/L (3.5-5.1); Sodium Level 139 mmol/L (136-145)
[2021-03-13] MEDS: fentaNYL 100 MCG/2 ML Ampul 50 MCG IV ×2 (14:24→16:30)
[2021-03-13 14:25] VITALS: BP 112/87; PULSE 89; RESP 16; O2SAT 100
[2021-03-13 15:20] VITALS: BP 108/78; PULSE 95; RESP 16; O2SAT 99
== END 2021-03-13 17:53 | disposition other institution (70) ==
PROVIDERS: Emergency Provider Emergency Medicine; PCP Family Medicine
DX: S52.91XA Unspecified fracture of right forearm, initial encounter for closed fracture (principal); F17.210 Nicotine dependence, cigarettes, uncomplicated; W54.0XXA Bitten by dog, initial encounter
CPT/HCPCS: 73090; 73110; 80048; 85025; 96365; 96366; 96375; 96376; 99285; J7030; A4216

== ENCOUNTER 2022-07-07 17:43 | Emergency (ER) | payer BC, MEDICAID, SELFPAY ==
[2022-07-07 17:44] VITALS: BP 116/78; PULSE 93; RESP 16; TEMP 36.1; O2SAT 100; BMI 21.4
--- NOTE | 2022-07-07 18:05 | RAD_ITS ---
INDICATION: Trauma, injury EXAMINATION/TECHNIQUE: X-RAY - RIGHT XR Wrist Min 3 Views 3 VIEWS COMPARISON: 07/07/2022 FINDINGS: SOFT TISSUES: No soft tissue swelling or gas. Stable fixation hardware distal radius and ulna. BONES/JOINTS: No acute fracture. Mild posttraumatic deformity distal radius and ulna. Joint spaces anatomically maintained. RAD/Wrist min 3 Views IMPRESSION: No acute bony abnormality. Electronically Signed: Lan Khalil MD at 18:57 EST ,
[2022-07-07 20:02] VITALS: RESP 14
--- NOTE | 2022-07-07 20:03 | EX.ED.UPPERE ---
HPI History of Present Illness Chief Complaint: Upper Extremity Injury Narrative Narrative: 32-year-old female presenting with right wrist pain. She has previous wrist fracture which required surgical repair. This is distantly. She last saw her orthopedic surgeon over a year ago. Today she was walking her dogs and states she was holding the leash with her left hand but they pulled her over and she fell striking her right hand. She complains of pain in the right wrist but also chronic numbness and tingling in the area where she had surgery. There is nothing new about tingling. Denies head injury or LOC. No lacerations or abrasions. [facility] Home Medications NK 03/13/21 [History Last Taken Unknown] Allergy/AdvReac Type Severity Reaction Status Date / Time No Known Allergies Allergy Verified 07/07/22 17:43 Social History Smoking Status: Current every day smoker tobacco type: cigarettes ROS ROS ED Constitutional Constitutional ED: Denies chills, fever(s) or sweats Eyes Eyes: Denies blurry vision or change in vision ENT ENT ED: Denies ear pain or sore throat Cardiovascular Cardiovascular: Denies chest pain, palpitations or racing heartbeat Respiratory/Chest Respiratory/Chest: Denies cough, dyspnea or sputum Gastrointestinal Gastrointestinal: Denies abdominal pain, constipation, diarrhea, nausea or vomiting Genitourinary Genitourinary ED: Denies dysuria, hematuria or urinary frequency Musculoskeletal Musculoskeletal: Reports other Details: Right wrist pain Integumentary Denies abscess, Abrasions or rash Neurologic Neurologic: Denies headache(s), paresthesias or weakness Psychiatric Psychiatric: Denies anxiety, depression, suicidal ideation or suicidal thoughts Endocrine Endocrinology: Denies polydipsia or polyuria EXAM Physical Exam Const Vital Signs: 07/07/22 17:44 Temperature 97 F L Temperature Source Temporal Pulse Rate 93 Respiratory Rate 16 Blood Pressure 116/78 Blood Pressure Mean 90 Pulse Ox 100 Oxygen Delivery Method Room Air MDM MDM MDM Narrative Medical decision making narrative: Patient presenting with right wrist pain after mechanical fall. She has previous fracture here. Differential includes wrist sprain, strain, fracture. Patient declines analgesia. X-ray was obtained of the right wrist which shows no acute fracture or subluxation on my interpretation. Radiologist interprets this and agrees. Patient requested a Velcro wrist splint to protect her wrist while she is working. This is provided. Patient discharged home in stable condition. Impression: 1. Right wrist sprain 2. Mechanical fall Lab Data Attestation: I reviewed the patient's lab results. Radiography Diagnostic Testing: Clinical Impression(s) from Imaging Studies Wrist X-Ray 07/07/22 18:05 IMPRESSION: No acute bony abnormality. Electronically Signed: Lan Khalil MD at 18:57 EST , Discharge Plan Triage Chief Complaint: Upper Extremity Injury ED Provider: Sandro Doshi Dx/Rx/DC Orders Instructions: ED Wrist Sprain Prescriptions: No Action NK Primary Care Provider: Tawny Esquivel Referrals: Tawny Esquivel MD [Primary Care Provider] - Disposition Disposition: Home, Self Care
== END 2022-07-07 20:25 | disposition home or self-care (01) ==
PROVIDERS: Emergency Provider Student in an Organized Health Care Education/Training Program; PCP Family Medicine; Visit Provider Student in an Organized Health Care Education/Training Program
DX: S63.91XA Sprain of unspecified part of right wrist and hand, initial encounter (principal); F17.210 Nicotine dependence, cigarettes, uncomplicated; W19.XXXA Unspecified fall, initial encounter
CPT/HCPCS: 73110; 99283